=== PATIENT | female | born 1995 | race Caucasian/White ===

== ENCOUNTER 2016-10-23 00:40 | Inpatient (IN) | payer OTHER ==
[~2016-10-23] VITALS: Ht 167.6 cm; Wt 73.9 kg
[~2016-10-23 00:40] MED LIST: ONDA8TAB10 PO
[2016-10-23] MEDS ORDERED: Sodium Chloride LOK Flush 10 mL Syringe IVFLUSH PRN (01:00)
[2016-10-23] MEDS ORDERED: Lactated Ringer's 1,000 ML IV PRN (01:00)
[2016-10-23] MEDS ORDERED: Oxytocin 10 Unit/mL Inj IM PRN ×2 (01:00→14:40)
[2016-10-23] MEDS ORDERED: Oxytocin 30 Units/500 mL LR 30 UNITS in IV Premix 1 EACH IV PRN ×2 (01:00→14:40)
[2016-10-23] MEDS ORDERED: Hemorrhage Kit, Post Partum XX ONE ×2 (01:00→14:40)
[2016-10-23] MEDS ORDERED: Methylergonovine 0.2 mg/mL Inj IM PRN ×2 (01:00→14:40)
[2016-10-23] MEDS ORDERED: Carboprost 250 mCg/mL Inj IM PRN ×2 (01:00→14:40)
[2016-10-23] MEDS ORDERED: fentaNYL-PF 50 mCg/mL 2 mL Inj IVPUSH PRN ×2 (01:00→12:15)
[2016-10-23 01:48] LABS: Mean Corpuscular Volume 86.9 fL (81-100)
[2016-10-23] MEDS ORDERED: fentaNYL 2 mCg/mL-Bupivicaine 0.125% 100 mL Premix EPIDURAL ONE (10:20)
[2016-10-23] MEDS ORDERED: Lactated Ringer's 1,000 ML IV SCH ×2 (12:12→14:37)
[2016-10-23] MEDS ORDERED: Lactated Ringer's 500 ML IV ONE (12:12)
--- NOTE | 2016-10-23 12:12 | PCM.HPANE ---
Patient Data Surgeon Admitting Provider:Lenin Chowdhury MD Attending Provider:Lenin Chowdhury MD Primary Care Physician:Keerthi Contreras MD Other Provider:Rd Sanders Anesthesia Reason for Visit TERM TERM Ht/WT & BMI Body Mass Index Allergies Coded Allergies: No Known Allergies (Unverified , 04/21/16) Past Anesthesia History Anesthesia History: Denies:: Abnormal Airway, Anesthesia Reactions, Difficult Intubation, Fam Anesthesia Reaction, Fam Malignant Hypertherm, Malignant Hyperthermia Diabetes History Hx Diabetes?: No MRSA MRSA: No Medications Hypertension Medication: No Active Scripts Ondansetron ODT 8 Mg Tab.rapdis8 Mg PO Q4H PRN For Nausea #20 TABLET Prov:Cliff Pulido MD 04/21/16 History History of ENT Problems?: No HEENT History: Denies:: Abnormal Airway Cataracts Difficult Intubation Dysphagia Glaucoma Hearing Problem Sinus Problem TMJ Denture Type: None Teeth Condition: Within Normal Limits Hx of Heart Problems?: No Cardiovascular History: Denies:: Congestive Heart Failure Hypertension Hx of Respiratory Problem?: No Respiratory History: Denies:: Tuberculosis Hx Neurologic Problems?: No Hx of GI Problems?: No Hx of Problems?: No HX of Peritoneal Dialysis: No Female Hx: Positive for:: Currently Skin History: Denies:: History Skin Disorders? Pressure Ulcers Hx Musculoskeletal Problems?: No Hx of Psycho/Social Problems?: No Hx Surgeries?: No Hx Diabetes: No Hx Alcohol Use: NoHx Substance Use: No Smoking Status: Never Smoker Stop/Bang CESILIA Risk Assessment: Low Risk, <3 Yes Risk Assessment Category Category 1A: Patient has history of documented sleep apnea, and HAS NOT received any narcotic, sedative or anesthesia administration during this stay. Category 1B: Patient has history of documented sleep apnea, and HAS received any narcotic , sedative or anesthesia administration during this stay Category 2: Patient has SUSPECTED Obstructive Sleep Apnea, and HAS received any narcotic , sedative or anesthesia administration during this stay. Category 3: Patient has SUSPECTED Obstructive Sleep Apnea and HAS NOT received narcotic, sedative or anesthesia administration during this stay. Category 4: Outpatient in Procedural Areas with known sleep apnea or who screen positive for High Risk via the STOP/BANG questionnaire. Exam Exam General Appearance: Alert, Oriented X3, Cooperative HEENT/AIRWAY: MP 1 Lungs: Clear to Auscultation Heart: Exam Unremarkable Meds/Labs/Diagnostics Labs Test 10/23/16 01:30 White Blood Count 9.1th/mm3 (3.8-10.1) Red Blood Count 3.52mil/mm3 (3.90-5.20) Hemoglobin 10.2g/dL (12.0-15.6) Hematocrit 30.6% (35.0-46.0) Mean Corpuscular Volume 86.9fL (81-100) Mean Corpuscular Hemoglobin 29.0pg (27.0-35.0) Mean Corpuscular Hemoglobin Concent 33.3% (32.0-37.0) Red Cell Distribution Width 13.1% (12.3-15.4) Platelet Count 111bil/L (150-400) Plan Impression Patient chart reviewed, patient interviewed and anesthestic plan with risks, benefits, and alternatives discussed, and informed consent obtained. ASA Physical Status: ASA1 Normal Healthy Anesthetic Plan: Epidural Bene/Risks/Altern/Consents: Yes HP Complete Prior to Induction: Yes Dex Jimenez DO October 23, 2016 12:12
[2016-10-23] MEDS ORDERED: Ondansetron 2 mg/mL 2 mL Inj IVPUSH PRN (12:15)
[2016-10-23] MEDS ORDERED: fentaNYL 2 mCg/mL-Bupiv 0.125% 100 ML EPIDURAL SCH (12:15)
[2016-10-23] MEDS ORDERED: Atropine 1 mg/10 mL (Code) Syringe IVPUSH PRN (12:15)
[2016-10-23] MEDS ORDERED: Phenylephrine/NS-PF 100 mCg/mL 5 mL Syringe IVPUSH PRN (12:15)
[2016-10-23] MEDS ORDERED: EPHEDrine Sulfate 50 mg/mL Inj IVPUSH PRN (12:15)
[2016-10-23] MEDS ORDERED: HYDROcodone-APAP 5-325 mg Tablet PO PRN (14:40)
[2016-10-23] MEDS ORDERED: LANOlin HPA 7 Gm Ointment TOPICAL PRN (14:40)
[2016-10-23] MEDS ORDERED: Witch Hazel-Glycerin Pads TOPICAL PRN (14:40)
[2016-10-23] MEDS ORDERED: Benzocaine (Dermoplast) 20% 60 Gm Spray TOPICAL PRN (14:40)
--- NOTE | 2016-10-24 | OP ---
[address] [address] OPERATIVE REPORT PATIENT: SUMAYA RIVERS : 1995 MR#: [id number] ADMIT: 10/23/2016 JOB ID: [id number] DATE OF SURGERY: 10/23/2016, at 2:18 p.m. PREOPERATIVE DIAGNOSIS(ES): POSTOPERATIVE DIAGNOSIS(ES): SURGEON: DELIVERY SUMMARY: This 21-year-old, G1, P0, female at 39 weeks and 4 days estimated gestational age delivered a vigorous male with Apgars of 8 and 9 by normal vaginal delivery. The patient presented around midnight on October 23, 2016, and had a complaint of spontaneous rupture of membranes with clear fluid. She was cara relatively regularly every 3-5 minutes and was 3 cm. She was admitted and proceeded to walk throughout the early part of her labor to try and get her contractions going even further. Eventually, she progressed to 5 cm and required an epidural. She was GBS negative and so no antibiotics were required. She did receive one dose of fentanyl. The patient tolerated all this quite well. She was at complete dilation by around 2 p.m. She pushed for about 20 minutes and delivered across a second-degree midline perineal laceration. A nuchal cord x1 was reduced at the time of delivery. Also of note is that there was a compound right hand at the time of delivery. The delivery was further noteworthy in that there was one deep deceleration to the 60s and 70s about seven minutes prior to delivery. This was not significantly repeated with subsequent contractions and pushing. The delivery proceeded up and onto the patient herself where stimulation and resuscitation was done. Minimal resuscitation was necessary. The cord was clamped and cut after about a minute and 30 seconds. Cord blood was sent for analysis. The placenta delivered approximately five minutes later spontaneously and intact with a three-vessel cord. The patient's laceration was repaired in the usual fashion using 3-0 chromic suture. During this repair she had a significant amount of bleeding totaling 500 cc. The Pitocin was opened wide up and this solved the bleeding issue without further agents. Following delivery the patient was in excellent condition and counts were correct x2. MTDD
[2016-10-24 06:56] LABS: Mean Corpuscular Hemoglobin 28.3 pg (27.0-35.0); Mean Corpuscular Volume 88.4 fL (81-100)
--- NOTE | 2016-10-24 07:39 | PCM.DC.OB ---
Obstetrical Discharge Summary Date of Service October 24, 2016 Date of hospital admission October 23, 2016 at 00:58 Date of Discharge: October 24, 2016 Providers Admitting Physician: Lenin Chowdhury MD Primary Care Physician: Keerthi Contreras MD Attending Physician: Lenin Chowdhury MD Problems: (1) Status post normal vaginal delivery Status: Acute ICD Code: [id number] Consultations None Invasive procedures Epidural with NVD Date of Procedure: October 23, 2016 Hospital Course: Patient presented in labor and delivered without issues. Recovered well. Ondansetron ODT (Ondansetron ODT) 8 Mg Tab.rapdis 8 MG PO Q4H PRN PRN For Nausea Prescribed by: BHAVESH CALDERON MD Follow-up plan See me in 8 weeks. Discharge Diet: No restrictions Discharge Activity-General: Pelvic Rest for 6 weeks, Try not to overdue, Activity as pain allows, Activity as energy allows, No lifting >15 pounds for 2 weeks Lenin Chowdhury MD October 24, 2016 07:39
--- NOTE | 2016-10-24 07:41 | PCM.DIOB ---
Obstetrical Disch Instruction Date of Service: October 24, 2016 Dates of Hospitalization Date of Hospital Admission October 23, 2016 at 00:58 Providers Admitting Physician: Lenin Chowdhury MD Primary Care Physician: Keerthi Contreras MD Attending Physician: Lenin Chowdhury MD Discharge Diagnosis Problems: (1) Status post normal vaginal delivery Status: Acute ICD Code: [id number] Diet Discharge Diet: No restrictions Activity Discharge Activity-General: Pelvic Rest for 6 weeks, Be up and about, Balance rest and activity, Activity as pain allows, Activity as energy allows, No lifting >15 pounds for 2 weeks Dressing and Incisional Care Hygiene: May shower, Perineal care, Sitz bath, Dermoplast spray, Witch Frida pads Follow Up Plan Follow-up Provider (F9): Lenin Chowdhury MD Follow-up appointment: Weeks (8) Call your provider for: Fever or Chills, Heavy vaginal bleeding, Excessive constipation, Vaginal discomfort, Red painful breasts Lenin Chowdhury MD October 24, 2016 07:41
[2016-10-24] MEDS ORDERED: IBUP800T28 PO (07:43)
[2016-10-24 15:32] VITALS: BP 120/79; PULSE 68; RESP 20
== END 2016-10-24 16:10 | disposition home or self-care (01) | DRG 775 ==
LOC: FBCO 00:40 → FBC 00:58
PROVIDERS: ADMIT Family Medicine; ATTEND Family Medicine
PROC: 10E0XZZ Delivery of Products of Conception, External Approach (ICD-10-PCS; principal; 2016-10-23)
PROC: 0KQM0ZZ Repair Perineum Muscle, Open Approach (ICD-10-PCS; 2016-10-23)
DX: O70.1 Second degree perineal laceration during delivery (principal); Z37.0 Single live birth; O76 Abnormality in fetal heart rate and rhythm complicating labor and delivery; Z3A.39 39 weeks gestation of pregnancy; O69.81X0 Labor and delivery complicated by cord around neck, without compression, not applicable or unspecified